=== PATIENT | female | born 1930 | race African-American/Black ===

== ENCOUNTER 2020-08-25 15:16 | Observation (INO) ==
--- NOTE | 2020-08-25 16:18 | DR.DIZZY ---
HPI Time seen Time Seen by Provider: 08/25/20 15:44 PCP Primary Care Physician: OUMOU GALVAN HPI Comment HPI Comment: An 89 y/o female presenting via EMS stating she passed out. She states that she was on her way into her kitchen. "I couldn't see there for a minute. She denies associated palpitations, c/p SOB or tinnitus. This happens to her intermittently and she states that she has some medications at home given to her to use. Complaint Chief Complaint:: EMS OUT TO PT WITH C/O SYNCOPE EPISODE, PT C/O PAIN TO HER BACK , PT IS ALERT AND ORIENTED TIMES FOUR PT IS ABLE TO GIVE HX , PT HAD NO LOC , ,BR COVID-19 Coronavirus risk:travel/contact w/high risk person: No Has patient experienced Coronavirus symptoms: No Nurses Notes Reviewed Nurses Notes Review: Yes Source History Provided: Patient Mode of Arrival Mode of Arrival: Stretcher Timing Onset of Chief Complaint: 08/25/20 Symptom Onset: Known Onset of Symptoms Start Date: 08/25/20 Location of Weakness Weakness Location: None Context History of: None Stroke Symptoms: None Associated signs and symptoms Associated Signs and Symptoms: Syncope and Headache (frontal); denies Faintness, Near Syncope, Vertigo, Tinnitus, Imbalance, Weak, Numb, Difficult Speech, Change of Vision, Fever, Chest Pain, Palpitations, Nausea, Vomiting and GI Bleed PMH PMH Past Medical History: Yes Past Medical History: Hypertension Past Surgical History: Yes Surgical History: Hysterectomy Family History History of Family Medical Conditions: No Social History Does patient currently use any type of tobacco product: No Have you used tobacco products in the last 12 months: No Type of Tobacco Use: None Does any household member use tobacco: No Alcohol Use: None Do you use any recreational Drugs:: No Lives Where: Home Travel Risk Coronavirus risk:travel/contact w/high risk person: No Has patient experienced Coronavirus symptoms: No Infectious screening In the last 2 months have you had wt loss of >10#?: NO Have you had fever, night sweats or hemotysis?: No Have you traveled outside the country in the last 6 months?: No Isolation: Standard ROS Review of Systems Constitutional: No Symptoms Reported Eyes: No Symptoms Reported ENTM: No Symptoms Reported Respiratoy: No Symptoms Reported Cardiovascular: No Symptoms Reported Gastrointestinal/Abdominal: No Symptoms Reported Genitourinary: No Symptoms Reported Neurological: Dizziness Musculoskeletal: No Symptoms Reported Integumentary: No Symptoms Reported Hematologic/Lymphatic: No Symptoms Reported Endocrine: No Symptoms Reported Psychiatric: No Symptoms Reported PE Vital Signs Vitals: Temperature 97.5 F Pulse Rate 77 Respiratory Rate 21 Blood Pressure 135/74 O2 Sat by Pulse Oximetry 98 General Limitations: No Limitations General Appearance: Alert and In No Apparent Distress Head Head Exam: Normal Inspection, Atraumatic and Normocephalic Eyes Eye exam: Normal Appearance, PERRL and EOMI ENT ENT Exam: Normal Exam, Normal Oropharynx, Normal External Ear Exam and Mucous Membranes Moist Neck Neck Exam: Normal Inspection, Full ROM and Trachea Midline Chest Chest Inspection: Normal Inspection and Symmetric Chest Wall Rise Respiratory Respiratory Exam: Normal Lung Sounds Bilat Cardiovascular Cardiovascular Exam: Regular Rate, Normal Rhythm, Normal Heart Sounds, +S1 and +S2 Abdominal Exam Abdominal Exam: Normal Inspection, Normal Bowel Sounds and Soft Rectal Rectal Exam: Deferred Extremeties Extremities Exam: Normal Inspection and Full ROM Back Back Exam: Normal Inspection and Full ROM Neurologic Neurological Exam: Alert and Oriented X3 Psychiatric Psychiatric Exam: Normal Affect and Normal Mood Skin Skin Exam: Dry and Normal Color MDM Differential Diagnosis Differential Diagnosis: CVA, Electrolyte disorder, Hypoglycemia, Myocardial infarction and Peripheral Vertigo COURSE Treatment Treatment: HISTORY EMS OUT TO PT WITH C/O SYNCOPE EPISODE, PT C/O PAIN TO HER BACK, PT IS ALERT AND ORIENTED TIMES FOUR PT IS ABLE TO GIVE HX, PT HAD NO LOC, EMS STATES PT WAS SEEN AT [facility] ON 08/24/2020 FOR LABS STUDY CHEST, 1 VIEW COMPARISON None FINDINGS The trachea is midline. The cardiac silhouette is borderline enlarged.. The lungs are clear without focal infiltrate or effusion. The bony thorax is unremarkable. IMPRESSION No acute cardiopulmonary disease. Electronically signed by: CHAPIN CATALAN (Aug 25, 2020 16:50:16) Reevaluation 1st: Improved Education/Counseling Education/Counseling: Patient, Education and Counseling Educated On: Treatment, Diagnosis, Prognosis and Needs for Follow Up ROR Labs Reviewed Laboratory Results Reviewed?: Yes Result Diagrams: 08/25/20 16:24 08/25/20 16:24 Laboratory: WBC 5.3 X10^3/uL (3.6-10.0) 08/25/20 16:24 RBC 4.37 X10^6/uL (3.5-5.4) 08/25/20 16:24 Hgb 12.7 g/dL (12.0-16.0) 08/25/20 16:24 Hct 38.9 % (36.0-47.0) 08/25/20 16:24 MCV 89.1 fL (80.0-100.0) 08/25/20 16:24 MCH 29.0 pg (27.0-34.0) 08/25/20 16:24 MCHC 32.5 g/dL (33.0-35.0) L 08/25/20 16:24 RDW 17.5 % (11.6-16.5) H 08/25/20 16:24 Plt Count 178 X10^3/uL (150.0-450.0) 08/25/20 16:24 MPV 8.8 fL (7.4-11.0) 08/25/20 16:24 Neut % (Auto) 57.9 % (42.0-75.0) 08/25/20 16:24 Lymph % (Auto) 30.3 % (21.0-51.0) 08/25/20 16:24 [place] % (Auto) 8.5 % (0.0-13.0) 08/25/20 16:24 Eos % (Auto) 2.4 % (0.9-2.9) 08/25/20 16:24 Baso % (Auto) 0.9 % (0.2-1.0) 08/25/20 16:24 Neut # (Auto) 3.0 x10^3/uL (2.2-4.8) 08/25/20 16:24 Lymph # (Auto) 1.6 X10^3/uL (1.3-2.9) 08/25/20 16:24 [place] # (Auto) 0.4 x10^3/uL (0.3-0.8) 08/25/20 16:24 Eos # (Auto) 0.1 x10^3/uL (0.0-0.2) 08/25/20 16:24 Baso # (Auto) 0.0 X10^3/uL (0.0-0.1) 08/25/20 16:24 Absolute Nucleated RBC 0.1 /100WBC 08/25/20 16:24 Sodium 139 mmol/L (136-145) 08/25/20 16:24 Corrected Sodium TNP 08/25/20 16:24 Potassium 3.6 mmol/L (3.5-5.1) 08/25/20 16:24 Chloride 103 mmol/L (98-107) 08/25/20 16:24 Carbon Dioxide 26.3 mmol/L (21-32) 08/25/20 16:24 BUN 31 mg/dL (7-18) H 08/25/20 16:24 Creatinine 3.07 mg/dL (0.55-1.02) H 08/25/20 16:24 Est GFR (MDRD) Af Amer 18 (>60) L 08/25/20 16:24 Est GFR (MDRD) Non-Af 15 (>60) L 08/25/20 16:24 Glucose 102 mg/dL (65-99) H 08/25/20 16:24 Calcium 9.7 mg/dL (8.5-10.1) 08/25/20 16:24 Corrected Calcium TNP 08/25/20 16:24 Total Bilirubin 0.30 mg/dL (0.2-1.0) 08/25/20 16:24 AST 17 Units/L (15-37) 08/25/20 16:24 ALT 12 Units/L (12-78) 08/25/20 16:24 Alkaline Phosphatase 91 Units/L (46-116) 08/25/20 16:24 Total Protein 8.0 g/dL (6.4-8.2) 08/25/20 16:24 Albumin 3.5 g/dL (3.4-5.0) 08/25/20 16:24 Globulin 4.5 g/dL (2.5-4.5) 08/25/20 16:24 Albumin/Globulin Ratio 0.8 Ratio (1.1-2.1) L 08/25/20 16:24 XRAY XRAY Interpreted by: Self X-ray Results: CXR: No cardiomegaly, no infiltrates noted. Radiologist report is pending. EKG Rate: 75 [place]: Normal Rhythm: NSR Block: None Hypertrophy: None ST: Old, Inf and Infarct Opioid Opioid Risk Tool Age (Jeevan box if 16-45): No History of Preadolescent Sexual Abuse: No Total: 0 Total Score Risk Category: Low Risk Copyright: Benito GERONIMO predicting aberrant behaviors Diagnosis Discharge Problem: Near syncope, CKD (chronic kidney disease) stage 4, GFR 15-29 ml/min Instructions Instructions: Near-Syncope, [id number] Chronic Kidney Disease, Adult, [id number] Forms: Precautions for COVID19 Patient Portal Social Distancing ADDITIONAL NOTES Additional Notes Additional Notes: HISTORY EMS OUT TO PT WITH C/O SYNCOPE EPISODE, PT C/O PAIN TO HER BACK, PT IS ALERT AND ORIENTED TIMES FOUR PT IS ABLE TO GIVE HX, PT HAD NO LOC, EMS STATES PT WAS SEEN AT [facility] ON 08/24/2020 FOR LABS STUDY CHEST, 1 VIEW COMPARISON None FINDINGS The trachea is midline. The cardiac silhouette is borderline enlarged.. The lungs are clear without focal infiltrate or effusion. The bony thorax is unremarkable. IMPRESSION No acute cardiopulmonary disease. Electronically signed by: CHAPIN CATALAN (Aug 25, 2020 16:50:16)
[2020-08-25 16:42] LABS: ALANINE AMINOTRANSFERASE 12 Units/L (12-78); ALBUMIN 3.5 g/dL (3.4-5.0); ALKALINE PHOSPHATASE 91 Units/L (46-116); ASPARTATE AMINO TRANSFERASE 17 Units/L (15-37); BLOOD UREA NITROGEN 31 mg/dL (7-18); CALCIUM 9.7 mg/dL (8.5-10.1); CARBON DIOXIDE 26.3 mmol/L (21-32); CHLORIDE 103 mmol/L (98-107); CREATININE 3.07 mg/dL (0.55-1.02); SODIUM 139 mmol/L (136-145); eGFR NON BLACK RACES 15 (>60)
[2020-08-25 16:43] LABS: BASOPHILS % (AUTO) 0.9 % (0.2-1.0); EOSINOPHILS # (AUTO) 0.1 x10^3/uL (0.0-0.2); EOSINOPHILS % (AUTO) 2.4 % (0.9-2.9); HEMATOCRIT 38.9 % (36.0-47.0); HEMOGLOBIN 12.7 g/dL (12.0-16.0); LYMPHOCYTES # (AUTO) 1.6 X10^3/uL (1.3-2.9); LYMPHOCYTES % (AUTO) 30.3 % (21.0-51.0); MEAN CORPUSCULAR HGB CONC 32.5 g/dL (33.0-35.0); MEAN CORPUSCULAR VOLUME 89.1 fL (80.0-100.0); MEAN PLATELET VOLUME 8.8 fL (7.4-11.0); MONOCYTES # (AUTO) 0.4 x10^3/uL (0.3-0.8); MONOCYTES % (AUTO) 8.5 % (0.0-13.0); NEUTROPHILS % (AUTO) 57.9 % (42.0-75.0); PLATELET COUNT 178 X10^3/uL (150.0-450.0); RED BLOOD COUNT 4.37 X10^6/uL (3.5-5.4); RED CELL DISTRIBUTION WIDTH 17.5 % (11.6-16.5); WHITE BLOOD COUNT 5.3 X10^3/uL (3.6-10.0)
--- NOTE | 2020-08-25 16:50 | CT ---
HISTORYEMS OUT TO PT WITH C/O SYNCOPE EPISODE, PT C/O PAIN TO HER BACK, PT IS ALERT AND ORIENTED TIMES FOUR PT IS ABLE TO GIVE HX, PT HAD NO LOC, EMS STATES PT WAS SEEN AT [facility] ON 08/24/2020 FOR LABSSTUDYBRAIN W/O CONCOMPARISONHead CT 08/24/2020TECHNIQUEMultiple CT axial images of the head were obtained without IV contrast. Coronal and sagittal images were reconstructed. Dose reduction techniques included Automated Exposure Control (AEC) and adjustment of mA and kV.FINDINGSAge-related findings include central and cortical atrophy with areas of low density in the periventricular white matter compatible with micro-ischemic changes. There is no mass, shift, or hemorrhage. Cerebellar tonsils are at an appropriate level. No fluid in the sinuses or mucosal thickening to suggest sinusitis. There is no mastoid effusion. Tiny amount of fluid in the right maxillary sinus may be incidental.IMPRESSION1. No acute findingElectronically signed by: Bay Hutson (Aug 25, 2020 16:46:49)
--- NOTE | 2020-08-25 16:52 | RAD ---
HISTORYEMS OUT TO PT WITH C/O SYNCOPE EPISODE, PT C/O PAIN TO HER BACK, PT IS ALERT AND ORIENTED TIMES FOUR PT IS ABLE TO GIVE HX, PT HAD NO LOC, EMS STATES PT WAS SEEN AT [facility] ON 08/24/2020 FOR LABSSTUDYCHEST, 1 VIEWCOMPARISONNoneFINDINGSThe trachea is midline. The cardiac silhouette is borderline enlarged.. The lungs are clear without focal infiltrate or effusion. The bony thorax is unremarkable.IMPRESSIONNo acute cardiopulmonary disease.Electronically signed by: CHAPIN CATALAN (Aug 25, 2020 16:50:16)
[2020-08-25 18:32] LABS: BILIRUBIN,URINE NEGATIVE (NEGATIVE); BLOOD/HEMOGLOBIN,URINE 1+ (NEGATIVE); GLUCOSE, URINE NEGATIVE (NEGATIVE); KETONES,URINE NEGATIVE (NEGATIVE); LEUKOCYTE ESTERASE ,URINE 2+ (NEGATIVE); NITRITES,URINE NEGATIVE (NEGATIVE); PROTEIN,URINE NEGATIVE (NEGATIVE); UROBILINOGEN,URINE NORMAL (NORMAL)
[2020-08-25 18:40] LABS: APPEARANCE,URINE CLEAR (CLEAR); COLOR,URINE YELLOW (YELLOW)
[2020-08-25 18:41] LABS: BACTERIA,URINE TRACE /HPF (NEGATIVE); RBC,URINE 0-2 /HPF (0-3); SQUAMOUS EPITHELIAL CELL,UR RARE /HPF (NEGATIVE)
[2020-08-25] MEDS ORDERED: CATAPRES TAB 0.1 MG PO ONE (20:25)
[2020-08-25] MEDS ORDERED: CATAPRES TAB 0.1 MG ONE (20:27)
[2020-08-25 22:39] VITALS: BMI 29.5
[2020-08-25 23:07] LABS: BASOPHILS # (AUTO) 0.1 X10^3/uL (0.0-0.1); BASOPHILS % (AUTO) 1.1 % (0.2-1.0); EOSINOPHILS # (AUTO) 0.2 x10^3/uL (0.0-0.2); EOSINOPHILS % (AUTO) 2.5 % (0.9-2.9); HEMATOCRIT 39.3 % (36.0-47.0); HEMOGLOBIN 12.8 g/dL (12.0-16.0); LYMPHOCYTES # (AUTO) 2.3 X10^3/uL (1.3-2.9); LYMPHOCYTES % (AUTO) 34.3 % (21.0-51.0); MEAN CORPUSCULAR HEMOGLOBIN 29.1 pg (27.0-34.0); MEAN CORPUSCULAR HGB CONC 32.6 g/dL (33.0-35.0); MEAN CORPUSCULAR VOLUME 89.3 fL (80.0-100.0); MEAN PLATELET VOLUME 8.6 fL (7.4-11.0); MONOCYTES # (AUTO) 0.6 x10^3/uL (0.3-0.8); MONOCYTES % (AUTO) 9.2 % (0.0-13.0); NEUTROPHILS # (AUTO) 3.6 x10^3/uL (2.2-4.8); NEUTROPHILS % (AUTO) 52.9 % (42.0-75.0); PLATELET COUNT 167 X10^3/uL (150.0-450.0); RED BLOOD COUNT 4.41 X10^6/uL (3.5-5.4); WHITE BLOOD COUNT 6.7 X10^3/uL (3.6-10.0)
[2020-08-25] MEDS: NS 1000 ML 1,000 ML IV SCH (23:15)
[2020-08-25 23:18] LABS: ALANINE AMINOTRANSFERASE 15 Units/L (12-78); ALBUMIN 3.5 g/dL (3.4-5.0); ALKALINE PHOSPHATASE 100 Units/L (46-116); ASPARTATE AMINO TRANSFERASE 16 Units/L (15-37); BLOOD UREA NITROGEN 31 mg/dL (7-18); CALCIUM 9.5 mg/dL (8.5-10.1); CARBON DIOXIDE 27.4 mmol/L (21-32); CHLORIDE 103 mmol/L (98-107); COR NA(FOR HYPERGLY) 140 mmol/L (136-145); CREATININE 2.86 mg/dL (0.55-1.02); SODIUM 140 mmol/L (136-145); eGFR NON BLACK RACES 17 (>60)
[2020-08-26 06:18] LABS: BASOPHILS % (AUTO) 0.6 % (0.2-1.0); EOSINOPHILS # (AUTO) 0.2 x10^3/uL (0.0-0.2); EOSINOPHILS % (AUTO) 2.9 % (0.9-2.9); HEMATOCRIT 35.9 % (36.0-47.0); HEMOGLOBIN 11.7 g/dL (12.0-16.0); LYMPHOCYTES # (AUTO) 2.7 X10^3/uL (1.3-2.9); LYMPHOCYTES % (AUTO) 46.5 % (21.0-51.0); MEAN CORPUSCULAR HEMOGLOBIN 29.2 pg (27.0-34.0); MEAN CORPUSCULAR HGB CONC 32.7 g/dL (33.0-35.0); MEAN CORPUSCULAR VOLUME 89.4 fL (80.0-100.0); MEAN PLATELET VOLUME 8.5 fL (7.4-11.0); MONOCYTES # (AUTO) 0.6 x10^3/uL (0.3-0.8); MONOCYTES % (AUTO) 9.8 % (0.0-13.0); NEUTROPHILS # (AUTO) 2.3 x10^3/uL (2.2-4.8); NEUTROPHILS % (AUTO) 40.2 % (42.0-75.0); PLATELET COUNT 161 X10^3/uL (150.0-450.0); RED BLOOD COUNT 4.02 X10^6/uL (3.5-5.4); RED CELL DISTRIBUTION WIDTH 17.3 % (11.6-16.5); WHITE BLOOD COUNT 5.8 X10^3/uL (3.6-10.0)
[2020-08-26 06:40] LABS: ALANINE AMINOTRANSFERASE 16 Units/L (12-78); ALBUMIN 3.1 g/dL (3.4-5.0); ALKALINE PHOSPHATASE 91 Units/L (46-116); ASPARTATE AMINO TRANSFERASE 14 Units/L (15-37); BLOOD UREA NITROGEN 29 mg/dL (7-18); CALCIUM 9.1 mg/dL (8.5-10.1); CARBON DIOXIDE 26.3 mmol/L (21-32); CHLORIDE 106 mmol/L (98-107); COR CA(FOR HYPOALB) 9.8 mg/dL (8.5-10.1); CREATININE 2.52 mg/dL (0.55-1.02); SODIUM 142 mmol/L (136-145); TOTAL PROTEIN 7.1 g/dL (6.4-8.2); eGFR NON BLACK RACES 19 (>60)
[2020-08-26 09:19] LABS: CKMB % 0.9 % (<4); CREATINE KINASE 108 Units/L (26-192); CREATINE KINASE MB < 1.0 ng/mL (0-4.0); TROPONIN I < 0.02 ng/mL (0-1.5)
[2020-08-26] MEDS: ASPIRIN EC 81 MG PO SCH (09:59)
[2020-08-26] MEDS: PROCARDIA XL 24-hr PO SCH (10:00)
[2020-08-26] MEDS: ZYLOPRIM PO SCH (10:00)
[2020-08-26] MEDS: ROCALTROL PO SCH (10:00)
[2020-08-26] MEDS: NEURONTIN CAP 100 MG PO SCH ×2 (10:01→20:46)
[2020-08-26] MEDS: NAMENDA TAB 10 MG PO SCH ×2 (10:01→20:46)
[2020-08-26] MEDS: NORMODYNE TAB 100 MG PO SCH ×2 (10:01→20:47)
[2020-08-26] MEDS: LINZESS PO SCH (10:01)
[2020-08-26] MEDS: MILK OF MAGNESIA PO SCH (10:02)
[2020-08-26] MEDS: COLACE SYRUP 100 MG UDC PO SCH (10:03)
[2020-08-26] MEDS: NS 1000 ML 1,000 ML IV SCH (10:04)
[2020-08-26] MEDS: ATIVAN TAB 1 MG PO PRN (10:08)
[2020-08-26] MEDS: DEMADEX PO SCH (10:08)
[2020-08-26 14:05] LABS: CKMB % 0.8 % (<4); CREATINE KINASE 122 Units/L (26-192); CREATINE KINASE MB < 1.0 ng/mL (0-4.0); TROPONIN I < 0.02 ng/mL (0-1.5)
[2020-08-26] MEDS: LOVENOX INJ 30 MG SYR SC SCH (16:15)
--- NOTE | 2020-08-26 16:25 | VAS ---
HISTORYSyncopeSTUDYCAROTID USCOMPARISONAugust 2019TECHNIQUEDuplex ultrasound scan of the bilateral carotid and vertebral arteries combining grayscale, color Doppler and spectral waveform analysis.FINDINGSRight common carotid artery: Intimal thickening along the margins of the CCA. No occlusion or stenosis. Waveforms are normal.Peak systolic velocity in the mid CCA is 120.06 cm/sec.Right internal carotid artery: Unremarkable. No occlusion or stenosis. Waveforms are normal. Peak systolic velocity in the proximal ICA is 87.93 cm/sec.Right ICA/CCA ratio: Within normal limits; 0.73.Right external carotid artery: No significant stenosis in the origin.Right vertebral artery: Unremarkable. Antegrade flow.Left common carotid artery: Interval thickening along the margins of the CCA. No occlusion or stenosis. Waveforms are normal. Peak systolic velocity in the distal CCA is 101.92 cm/sec.Left internal carotid artery: Unremarkable. No occlusion or stenosis. Waveforms are normal. Peak systolic velocity in the distal ICA is 114.36 cm/sec.Left ICA/CCA ratio: Within normal limits; 1.12.Left external carotid artery: No stenosis in the origin.Left vertebral artery: Unremarkable. Antegrade flow.IMPRESSIONNo clinically significant diameter stenosis in the internal carotid arteries based on flow velocity criteria.REFERENCES:SRU CRITERIA. The degree of internal carotid artery stenosis is based on criteria defined by the Society of Radiologists in Ultrasound (SRU).--Normal is no stenosis (ICA PSV is <125 cm/sec, ICA/CCA PSV ratio <2.0).--Mild is less than 50% stenosis (ICA PSV is <125 cm/sec, plaque/intimal thickening visible, ICA/CCA PSV ratio <2.0 and ICA EDV <40 cm/sec).--Moderate is 50-69% stenosis (ICA PSV is 125-230 cm/sec and plaque is visible. ICA/CCA PSV ratio of 2.0-4.0. ICA EDV is 40-100 cm/sec).--Severe is greater than 69% stenosis to near occlusion (ICA PSV is >230 cm/sec, visible plaque/luminal narrowing, ICA/CCA >4.0, ICA EDV >100 cm/sec).--Near occlusion is a markedly narrowed lumen.--Total occlusion is no detectable patent lumen.Electronically signed by: Farhat Simpson (Aug 26, 2020 16:23:52)
[2020-08-26] MEDS: SYNTHROID 112 mcg TAB PO SCH (17:00)
[2020-08-26] MEDS ORDERED: APRESOLINE INJ 20 MG VIAL IVP PRN (17:40)
--- NOTE | 2020-08-26 17:57 | DR.H&P ---
H&P - History & Physical for Day of: H&P Date: 08/25/20 - Chief Complaint Chief Complaint: syncope - History of Present Illness History of Present Illness: PT IS 89F ER ADMISSION AFTER PRESENTING PER EMS, "stating she passed out." She states that she was on her way into her kitchen. "I couldn't see there for a minute. She denies associated palpitations, c/p SOB or tinnitus. This happens to her intermittently and she states that she has some medications at home given to her to use. PT DENIES ANY FEVER, CCC. PT WAS COVID - ON ADMISSION. PT REPORTS SHE HAS HX OF KIDNEY DISEASE AND HYPERTENSION. PT ADMITTED FOR TREATMENT AND EVALUATION OF ACUTE ILLNESS, RO CVA - Past Medical History Past Medical History: Hypertension, Renal Disease - Past Surgical History Surgical History: HARDWARE DESIGNER Surgery, Hysterectomy, Joint Replacement - Family History Family Medical History: Diabetes Mellitus, Hypertension - Social History Does patient currently use any type of tobacco product: No Have you used tobacco products in the last 12 months: No Type of Tobacco Use: None Does any household member use tobacco: No Alcohol Use: None Drug Use: None - Medications Home Medications: No Known Drug Allergies Allergy (Verified 08/25/20 15:26) CONTINUE taking the following medications allopurinol 100 mg PO DAILY 08/25/20 [History] aspirin [Ecotrin Low Strength] 81 mg PO DAILY 08/25/20 [History] atorvastatin 20 mg PO DAILY 08/25/20 [History] calcitriol 0.25 mcg PO DAILY 08/25/20 [History] carbidopa-levodopa 1 tab PO BID 08/25/20 [History] docusate sodium 100 mg PO DAILY 08/25/20 [History] donepezil 10 mg PO DAILY 08/25/20 [History] ezetimibe 10 mg PO DAILY 08/25/20 [History] gabapentin 200 mg PO BID 08/25/20 [History] labetalol 100 mg PO BID 08/25/20 [History] levothyroxine 112 mcg PO QAM 08/25/20 [History] linaclotide [Linzess] 145 mcg PO DAILY PRN 08/25/20 [History] lorazepam 1 mg PO DAILY PRN 08/25/20 [History] memantine 10 mg PO BID 08/25/20 [History] mirtazapine 30 mg PO QHS 08/25/20 [History] nifedipine 60 mg PO DAILY 08/25/20 [History] pramipexole 0.25 mg PO QHS 08/25/20 [History] propylene glycol-glycerin [Advanced Eye Relief] 2 drp OPHTHALMIC (EYE) QID PRN 08/25/20 [History] torsemide 10 mg PO QAM 08/25/20 [History] tramadol See Rx Instructions .ROUTE .COMPLEX PRN 08/25/20 [History] - Review of Systems Constitutional: Weakness Eyes: No Symptoms Reported ENT: No Symptoms Reported Respiratory: No Symptoms Reported Cardiovascular: Chest Pain Gastrointestinal: No Symptoms Reported Genitourinary: No Symptoms Reported, Dysuria Skin: No Symptoms Reported Neurological: No Symptoms Reported - Physical Exam Vital Signs: Temperature 97.4 F Pulse Rate [Left Brachial] 66 Pulse Rate [Right] 68 Pulse Rate 72 Respiratory Rate 20 Blood Pressure [Right Arm] 175/72 Blood Pressure [Left Arm] 192/89 Blood Pressure 172/96 O2 Sat by Pulse Oximetry 98 Oriented: Normal Eyes: Normal Ear: Normal Nose: Normal Throat: Normal Respiratory: RLL Diminished, LLL Diminished Cardiovascular: Normal : Normal Auscultation: Bowel Sounds: Normal Palpation: Normal Tenderness: Normal Skin: Decreased [place]urg[place] Musculoskeletal: Normal Psychiatric: Normal Mood Description: Calm Speech Pattern: Clear, Appropriate - Assessment/Plan (1) Near syncope Status: Acute Plan: ADMIT, CT HEAD ON ADMISSION. BP CONTROL, GENTLE IV HYDRATION, STRICT I& OS. CAROTID ARTERY US, ECHO. TELEMETRY, BP CONTROL. SERIAL CE AND EKG. (2) Hypertension Status: Acute (3) Acute kidney injury Status: Acute - Allergies Allergies/Adverse Reactions: Allergies Allergy/AdvReac Type Severity Reaction Status Date / Time No Known Drug Allergies Allergy Verified 08/25/20 15:26
--- NOTE | 2020-08-26 18:19 | PCM.PROG ---
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 PT REPORTS THIS MORNING SHE HAS HAD SOME CHEST PAIN. PT HAS PMH OF RENAL DISEASE AND HTN. PT HAD STABLE CE ON AM COLLECTION, WILL REPEAT Q 6 HRS X3. PTS HOME MEDICATION RESUMED FOR BP CONTROL. WILL OBTAIN ECHO AND CAROTID ARTERY US THIS AM. PT HAD SLIGHT IMPROVING RENAL FUNCTION. KEEP STRICT I&OS. PT DENIES ANY FEVER, CCC. - Past Medical Family Social History Past Med/Fam/Surg Hx: No changes since H&P Allergies: Allergies No Known Drug Allergies Allergy (Verified 08/25/20 15:26) - Review of Systems ROS: No change since H&P - Vital Signs and I&O's Vital Signs: Temperature 97.4 F Pulse Rate [Left Brachial] 66 Pulse Rate [Right] 68 Pulse Rate 72 Respiratory Rate 20 Blood Pressure [Right Arm] 175/72 Blood Pressure [Left Arm] 192/89 Blood Pressure 172/96 O2 Sat by Pulse Oximetry 98 Intake and Output: Intake & Output 08/24/20 08/25/20 08/26/20 08/27/20 11:59 11:59 11:59 11:59 Intake Total 538 / 538 480 / 480 Balance 538 / 538 480 / 480 - Physical Exam Oriented: Normal Eyes: Normal Ear: Normal Nose: Normal Throat: Normal Respiratory: Diminished Cardiovascular: Normal : Normal Auscultation: Bowel Sounds: Normal Tenderness: Normal Skin: Decreased Turgur Musculoskeletal: Normal Psychiatric: Normal Mood Description: Calm Speech Pattern: Clear, Appropriate - Laboratory and Diagnostics Result Diagrams: 08/26/20 05:24 08/26/20 05:24 Labs: Laboratory WBC 5.8 X10^3/uL (3.6-10.0) 08/26/20 05:24 RBC 4.02 X10^6/uL (3.5-5.4) 08/26/20 05:24 Hgb 11.7 g/dL (12.0-16.0) L 08/26/20 05:24 Hct 35.9 % (36.0-47.0) L 08/26/20 05:24 MCV 89.4 fL (80.0-100.0) 08/26/20 05:24 MCH 29.2 pg (27.0-34.0) 08/26/20 05:24 MCHC 32.7 g/dL (33.0-35.0) L 08/26/20 05:24 RDW 17.3 % (11.6-16.5) H 08/26/20 05:24 Plt Count 161 X10^3/uL (150.0-450.0) 08/26/20 05:24 MPV 8.5 fL (7.4-11.0) 08/26/20 05:24 Neut % (Auto) 40.2 % (42.0-75.0) L 08/26/20 05:24 Lymph % (Auto) 46.5 % (21.0-51.0) 08/26/20 05:24 [place] % (Auto) 9.8 % (0.0-13.0) 08/26/20 05:24 Eos % (Auto) 2.9 % (0.9-2.9) 08/26/20 05:24 Baso % (Auto) 0.6 % (0.2-1.0) 08/26/20 05:24 Neut # (Auto) 2.3 x10^3/uL (2.2-4.8) 08/26/20 05:24 Lymph # (Auto) 2.7 X10^3/uL (1.3-2.9) 08/26/20 05:24 [place] # (Auto) 0.6 x10^3/uL (0.3-0.8) 08/26/20 05:24 Eos # (Auto) 0.2 x10^3/uL (0.0-0.2) 08/26/20 05:24 Baso # (Auto) 0.0 X10^3/uL (0.0-0.1) 08/26/20 05:24 Absolute Nucleated RBC 0.2 /100WBC 08/26/20 05:24 Sodium 142 mmol/L (136-145) 08/26/20 05:24 Corrected Sodium TNP 08/26/20 05:24 Potassium 3.5 mmol/L (3.5-5.1) 08/26/20 05:24 Chloride 106 mmol/L (98-107) 08/26/20 05:24 Carbon Dioxide 26.3 mmol/L (21-32) 08/26/20 05:24 BUN 29 mg/dL (7-18) H 08/26/20 05:24 Creatinine 2.52 mg/dL (0.55-1.02) H 08/26/20 05:24 Est GFR (MDRD) Af Amer 23 (>60) L 08/26/20 05:24 Est GFR (MDRD) Non-Af 19 (>60) L 08/26/20 05:24 Glucose 103 mg/dL (65-99) H 08/26/20 05:24 Calcium 9.1 mg/dL (8.5-10.1) 08/26/20 05:24 Corrected Calcium 9.8 mg/dL (8.5-10.1) 08/26/20 05:24 Total Bilirubin 0.20 mg/dL (0.2-1.0) 08/26/20 05:24 AST 14 Units/L (15-37) L 08/26/20 05:24 ALT 16 Units/L (12-78) 08/26/20 05:24 Alkaline Phosphatase 91 Units/L (46-116) 08/26/20 05:24 Creatine Kinase 122 Units/L (26-192) 08/26/20 13:27 CK-MB (CK-2) < 1.0 ng/mL (0-4.0) 08/26/20 13:27 CK/CKMB % Calc 0.8 % (<4) 08/26/20 13:27 Troponin I < 0.02 ng/mL (0-1.5) 08/26/20 13:27 C-Reactive Protein 13.80 mg/L (0-3.0) H 08/26/20 13:27 Total Protein 7.1 g/dL (6.4-8.2) 08/26/20 05:24 Albumin 3.1 g/dL (3.4-5.0) L 08/26/20 05:24 Globulin 4.0 g/dL (2.5-4.5) 08/26/20 05:24 Albumin/Globulin Ratio 0.8 Ratio (1.1-2.1) L 08/26/20 05:24 Specimen Type Clean catch urine 08/25/20 18:15 Urine Color Yellow (YELLOW) 08/25/20 18:15 Urine Appearance Clear (CLEAR) 08/25/20 18:15 Urine pH 5.0 (5.0 - 8.0) 08/25/20 18:15 Ur Specific [place] 1.015 (1.000-1.030) 08/25/20 18:15 Urine Protein Negative (NEGATIVE) 08/25/20 18:15 Urine Glucose (UA) Negative (NEGATIVE) 08/25/20 18:15 Urine Ketones Negative (NEGATIVE) 08/25/20 18:15 Urine Occult Blood 1+ (NEGATIVE) 08/25/20 18:15 Urine Nitrite Negative (NEGATIVE) 08/25/20 18:15 Urine Bilirubin Negative (NEGATIVE) 08/25/20 18:15 Urine Urobilinogen Normal (NORMAL) 08/25/20 18:15 Ur Leukocyte Esterase 2+ (NEGATIVE) 08/25/20 18:15 Urine RBC 0-2 /HPF (0-3) 08/25/20 18:15 Urine WBC 3-5 /HPF (0-5) 08/25/20 18:15 Ur Squamous Epith Cells Rare /HPF (NEGATIVE) 08/25/20 18:15 Urine Bacteria Trace /HPF (NEGATIVE) 08/25/20 18:15 Ur Culture Indicated? No/not indicated 08/25/20 18:15 SARS CoV-2 RNA Rapid MICKEY Negative (NEGATIVE) 08/25/20 19:32 - Plan (1) Near syncope Status: Acute Plan: CT HEAD ON ADMISSION. BP CONTROL, GENTLE IV HYDRATION, STRICT I& OS. CAROTID ARTERY US, ECHO. TELEMETRY, BP CONTROL, CONTINUE HOME ANTIHYPERTENSIVE MEDICATION. PRN HYDRALAZINE. SERIAL CE AND EKG. (2) Hypertension Status: Acute (3) Acute kidney injury Status: Acute
[2020-08-26] MEDS: ARICEPT TAB 10 MG PO SCH (20:45)
[2020-08-26] MEDS: LIPITOR TAB 20 MG PO SCH (20:45)
[2020-08-26] MEDS: COLACE CAP 100 MG PO SCH (20:45)
[2020-08-26] MEDS: MIRAPEX TAB 0.25 MG PO SCH (20:46)
[2020-08-26] MEDS: ZETIA TAB 10 MG PO SCH (20:47)
[2020-08-26] MEDS: REMERON PO SCH (20:47)
[2020-08-27 05:14] LABS: BASOPHILS # (AUTO) 0.1 X10^3/uL (0.0-0.1); BASOPHILS % (AUTO) 1.4 % (0.2-1.0); EOSINOPHILS # (AUTO) 0.2 x10^3/uL (0.0-0.2); EOSINOPHILS % (AUTO) 2.5 % (0.9-2.9); HEMATOCRIT 37.4 % (36.0-47.0); HEMOGLOBIN 12.2 g/dL (12.0-16.0); LYMPHOCYTES # (AUTO) 2.9 X10^3/uL (1.3-2.9); LYMPHOCYTES % (AUTO) 45.6 % (21.0-51.0); MEAN CORPUSCULAR HEMOGLOBIN 29.4 pg (27.0-34.0); MEAN CORPUSCULAR HGB CONC 32.6 g/dL (33.0-35.0); MEAN CORPUSCULAR VOLUME 90.1 fL (80.0-100.0); MEAN PLATELET VOLUME 9.2 fL (7.4-11.0); MONOCYTES # (AUTO) 0.5 x10^3/uL (0.3-0.8); MONOCYTES % (AUTO) 8.5 % (0.0-13.0); NEUTROPHILS # (AUTO) 2.7 x10^3/uL (2.2-4.8); PLATELET COUNT 166 X10^3/uL (150.0-450.0); RED BLOOD COUNT 4.15 X10^6/uL (3.5-5.4); RED CELL DISTRIBUTION WIDTH 17.1 % (11.6-16.5); WHITE BLOOD COUNT 6.4 X10^3/uL (3.6-10.0)
[2020-08-27 05:30] LABS: ALANINE AMINOTRANSFERASE 15 Units/L (12-78); ALBUMIN 3.1 g/dL (3.4-5.0); ALKALINE PHOSPHATASE 88 Units/L (46-116); ASPARTATE AMINO TRANSFERASE 19 Units/L (15-37); BLOOD UREA NITROGEN 23 mg/dL (7-18); CALCIUM 9.1 mg/dL (8.5-10.1); CHLORIDE 104 mmol/L (98-107); COR CA(FOR HYPOALB) 9.8 mg/dL (8.5-10.1); CREATININE 1.94 mg/dL (0.55-1.02); SODIUM 141 mmol/L (136-145); TOTAL PROTEIN 7.1 g/dL (6.4-8.2); eGFR NON BLACK RACES 26 (>60)
[2020-08-27] MEDS: NS 1000 ML 1,000 ML IV SCH ×2 (05:31→23:34)
[2020-08-27 05:51] LABS: CHOL/HDL RATIO 3.3 (0.0-5.0)
--- NOTE | 2020-08-27 09:29 | RAD ---
HISTORYSOBSTUDYCHEST, 1 [id number] lungs are not well inflated. As result, there are hypoventilatory changes.No significant abnormality when accounting for the lesser degree of inflation.The heart size is magnified. Vascular calcifications are present compatible with atherosclerosis.Bones are unremarkable.IMPRESSION1. No significant abnormalityElectronically signed by: Bay Hutson (Aug 27, 2020 09:26:56)
[2020-08-27] MEDS: NEURONTIN CAP 100 MG PO SCH ×2 (09:43→20:25)
[2020-08-27] MEDS: PROCARDIA XL 24-hr PO SCH (09:43)
[2020-08-27] MEDS: DEMADEX PO SCH (09:43)
[2020-08-27] MEDS: MILK OF MAGNESIA PO SCH (09:43)
[2020-08-27] MEDS: LINZESS PO SCH (09:44)
[2020-08-27] MEDS: COLACE SYRUP 100 MG UDC PO SCH (09:44)
[2020-08-27] MEDS: NORMODYNE TAB 100 MG PO SCH ×2 (09:44→20:26)
[2020-08-27] MEDS: ROCALTROL PO SCH (09:44)
[2020-08-27] MEDS: ASPIRIN EC 81 MG PO SCH (09:44)
[2020-08-27] MEDS: ZYLOPRIM PO SCH (09:45)
[2020-08-27] MEDS: NAMENDA TAB 10 MG PO SCH ×2 (09:45→20:25)
[2020-08-27] MEDS: LOVENOX INJ 30 MG SYR SC SCH (09:45)
[2020-08-27] MEDS: SYNTHROID 112 mcg TAB PO SCH (17:00)
[2020-08-27] MEDS: COLACE CAP 100 MG PO SCH (20:24)
[2020-08-27] MEDS: ARICEPT TAB 10 MG PO SCH (20:24)
[2020-08-27] MEDS: MIRAPEX TAB 0.25 MG PO SCH (20:25)
[2020-08-27] MEDS: LIPITOR TAB 20 MG PO SCH (20:25)
[2020-08-27] MEDS: ZETIA TAB 10 MG PO SCH (20:26)
[2020-08-27] MEDS: REMERON PO SCH (20:26)
[2020-08-28] MEDS: ATIVAN TAB 1 MG PO PRN ×2 (00:07→22:11)
[2020-08-28 06:34] LABS: BASOPHILS % (AUTO) 0.7 % (0.2-1.0); EOSINOPHILS # (AUTO) 0.2 x10^3/uL (0.0-0.2); HEMATOCRIT 38.3 % (36.0-47.0); HEMOGLOBIN 12.4 g/dL (12.0-16.0); LYMPHOCYTES # (AUTO) 2.6 X10^3/uL (1.3-2.9); LYMPHOCYTES % (AUTO) 39.8 % (21.0-51.0); MEAN CORPUSCULAR HEMOGLOBIN 29.2 pg (27.0-34.0); MEAN CORPUSCULAR HGB CONC 32.5 g/dL (33.0-35.0); MEAN CORPUSCULAR VOLUME 89.7 fL (80.0-100.0); MEAN PLATELET VOLUME 8.7 fL (7.4-11.0); MONOCYTES # (AUTO) 0.6 x10^3/uL (0.3-0.8); NEUTROPHILS # (AUTO) 3.1 x10^3/uL (2.2-4.8); NEUTROPHILS % (AUTO) 47.5 % (42.0-75.0); PLATELET COUNT 186 X10^3/uL (150.0-450.0); RED BLOOD COUNT 4.26 X10^6/uL (3.5-5.4); RED CELL DISTRIBUTION WIDTH 17.3 % (11.6-16.5); WHITE BLOOD COUNT 6.5 X10^3/uL (3.6-10.0)
[2020-08-28 06:44] LABS: ALANINE AMINOTRANSFERASE 19 Units/L (12-78); ALBUMIN 3.2 g/dL (3.4-5.0); ALKALINE PHOSPHATASE 102 Units/L (46-116); ASPARTATE AMINO TRANSFERASE 14 Units/L (15-37); BLOOD UREA NITROGEN 21 mg/dL (7-18); CHLORIDE 105 mmol/L (98-107); COR CA(FOR HYPOALB) 9.6 mg/dL (8.5-10.1); CREATININE 1.73 mg/dL (0.55-1.02); SODIUM 142 mmol/L (136-145); TOTAL PROTEIN 7.3 g/dL (6.4-8.2); eGFR NON BLACK RACES 30 (>60)
[2020-08-28] MEDS ORDERED: KLOR-CON PO PRN (09:16)
[2020-08-28] MEDS ORDERED: POTASSIUM CHL 40 MEQ/NS 0.45% 500 ML IV PRN (09:16)
[2020-08-28] MEDS ORDERED: POTASSIUM CHLORIDE LIQ 20 MEQ UDC PO PRN (09:16)
[2020-08-28] MEDS ORDERED: K-RIDER 10 MEQ/NS 100 ML 10 MEQ/100 ML BAG IV PRN (09:16)
[2020-08-28] MEDS ORDERED: MICRO K EXTEN CAP 10 MEQ PO PRN (09:16)
[2020-08-28] MEDS ORDERED: POTASSIUM CHL 60 MEQ/NS 0.45% 500 ML IV PRN (09:16)
[2020-08-28] MEDS: LOVENOX INJ 30 MG SYR SC SCH (09:20)
[2020-08-28] MEDS: MILK OF MAGNESIA PO SCH (09:21)
[2020-08-28] MEDS: COLACE SYRUP 100 MG UDC PO SCH (09:21)
[2020-08-28] MEDS: ASPIRIN EC 81 MG PO SCH (09:23)
[2020-08-28] MEDS: NAMENDA TAB 10 MG PO SCH ×2 (09:26→20:27)
[2020-08-28] MEDS: NEURONTIN CAP 100 MG PO SCH ×2 (09:27→20:25)
[2020-08-28] MEDS: ZYLOPRIM PO SCH (09:28)
[2020-08-28] MEDS: NORMODYNE TAB 100 MG PO SCH ×2 (09:28→20:29)
[2020-08-28] MEDS: DEMADEX PO SCH (09:29)
[2020-08-28] MEDS: LINZESS PO SCH (09:29)
[2020-08-28] MEDS: NS 1000 ML 1,000 ML IV SCH ×4 (09:30→22:46)
[2020-08-28] MEDS: PROCARDIA XL 24-hr PO SCH (09:30)
[2020-08-28] MEDS: ROCALTROL PO SCH (09:30)
[2020-08-28] MEDS: K-DUR TAB 20 MEQ PO PRN (10:18)
[2020-08-28] MEDS: MAGNESIUM SULFATE 1 GRAM/100 mL PREMIX 1 GM/100 ML BAG IV PRN ×2 (10:19→11:42)
--- NOTE | 2020-08-28 12:01 | PCM.PROG ---
Progress Note Progress Note for Day of Date of Exam: 08/28/20 Subjective Subjective: Patient seen at bedside, no overnight events. She was admitted after having a fall and syncope episode at home. She states she feels better. She worked with PT/OT yesterday. She has not ambulated much in the room. Labs: Hgb 12.4 K: 3.1 BUN/Cr: 21/1.73 (1.94) Trop (-) Iron 43 ECHo: EF 63%, Grade 1 DD, mild-mod pulmonary HTN Carotid U/S: no significant stenosis CXR (-) Plan: continue PT/OT as tolerated. Replace K as per protocol. Add iron supplement. Continue gentle hydration with NS at 50cc/hr. Monitor AM labs. Past Medical Family Social History Past Med/Fam/Surg Hx: No changes since H&P Allergies: Allergies No Known Drug Allergies Allergy (Verified 08/25/20 15:26) Review of Systems ROS: No change since H&P Vital Signs and I&O's Vital Signs: Temperature 98.8 F Pulse Rate [Left Brachial] 75 Pulse Rate [Right] 84 Pulse Rate 72 Respiratory Rate 18 Blood Pressure [Right Arm] 144/66 Blood Pressure [Left Arm] 122/55 Blood Pressure 172/96 O2 Sat by Pulse Oximetry 98 Intake and Output: Intake & Output 08/25/20 08/26/20 08/27/20 08/28/20 23:59 23:59 23:59 23:59 Intake Total 1459 / 1459 1881 / 1881 1823 / 1823 Balance 1459 / 1459 1881 / 1881 1823 / 1823 Physical Exam Oriented: Normal Eyes: Normal Ear: Normal Nose: Normal Throat: Normal Respiratory: Generalized and Diminished Cardiovascular: Normal Auscultation: Bowel Sounds: Normal Tenderness: Normal Skin: Decreased Turgur Musculoskeletal: Normal Psychiatric: Normal Mood Description: Calm Speech Pattern: Clear and Appropriate Laboratory and Diagnostics Result Diagrams: 08/28/20 05:54 08/28/20 05:54 Labs: Laboratory WBC 6.5 X10^3/uL (3.6-10.0) 08/28/20 05:54 RBC 4.26 X10^6/uL (3.5-5.4) 08/28/20 05:54 Hgb 12.4 g/dL (12.0-16.0) 08/28/20 05:54 Hct 38.3 % (36.0-47.0) 08/28/20 05:54 MCV 89.7 fL (80.0-100.0) 08/28/20 05:54 MCH 29.2 pg (27.0-34.0) 08/28/20 05:54 MCHC 32.5 g/dL (33.0-35.0) L 08/28/20 05:54 RDW 17.3 % (11.6-16.5) H 08/28/20 05:54 Plt Count 186 X10^3/uL (150.0-450.0) 08/28/20 05:54 MPV 8.7 fL (7.4-11.0) 08/28/20 05:54 Neut % (Auto) 47.5 % (42.0-75.0) 08/28/20 05:54 Lymph % (Auto) 39.8 % (21.0-51.0) 08/28/20 05:54 [place] % (Auto) 9.0 % (0.0-13.0) 08/28/20 05:54 Eos % (Auto) 3.0 % (0.9-2.9) H 08/28/20 05:54 Baso % (Auto) 0.7 % (0.2-1.0) 08/28/20 05:54 Neut # (Auto) 3.1 x10^3/uL (2.2-4.8) 08/28/20 05:54 Lymph # (Auto) 2.6 X10^3/uL (1.3-2.9) 08/28/20 05:54 [place] # (Auto) 0.6 x10^3/uL (0.3-0.8) 08/28/20 05:54 Eos # (Auto) 0.2 x10^3/uL (0.0-0.2) 08/28/20 05:54 Baso # (Auto) 0.0 X10^3/uL (0.0-0.1) 08/28/20 05:54 Absolute Nucleated RBC 0.0 /100WBC 08/28/20 05:54 Sodium 142 mmol/L (136-145) 08/28/20 05:54 Corrected Sodium TNP 08/28/20 05:54 Potassium 3.1 mmol/L (3.5-5.1) L 08/28/20 05:54 Chloride 105 mmol/L (98-107) 08/28/20 05:54 Carbon Dioxide 30.0 mmol/L (21-32) 08/28/20 05:54 BUN 21 mg/dL (7-18) H 08/28/20 05:54 Creatinine 1.73 mg/dL (0.55-1.02) H 08/28/20 05:54 Est GFR (MDRD) Af Amer 36 (>60) L 08/28/20 05:54 Est GFR (MDRD) Non-Af 30 (>60) L 08/28/20 05:54 Glucose 101 mg/dL (65-99) H 08/28/20 05:54 Calcium 9.0 mg/dL (8.5-10.1) 08/28/20 05:54 Corrected Calcium 9.6 mg/dL (8.5-10.1) 08/28/20 05:54 Magnesium 1.8 mg/dL (1.7-2.9) 08/28/20 05:54 Iron 43 ug/dL (50-175) L 08/26/20 13:00 Transferrin 202 mg/dL (202-364) 08/26/20 13:00 Ferritin 44 ng/mL (8-252) 08/26/20 13:00 Total Bilirubin 0.10 mg/dL (0.2-1.0) L 08/28/20 05:54 AST 14 Units/L (15-37) L 08/28/20 05:54 ALT 19 Units/L (12-78) 08/28/20 05:54 Alkaline Phosphatase 102 Units/L (46-116) 08/28/20 05:54 Creatine Kinase 122 Units/L (26-192) 08/26/20 13:27 CK-MB (CK-2) < 1.0 ng/mL (0-4.0) 08/26/20 13:27 CK/CKMB % Calc 0.8 % (<4) 08/26/20 13:27 Troponin I < 0.02 ng/mL (0-1.5) 08/26/20 13:27 C-Reactive Protein 13.80 mg/L (0-3.0) H 08/26/20 13:27 Total Protein 7.3 g/dL (6.4-8.2) 08/28/20 05:54 Albumin 3.2 g/dL (3.4-5.0) L 08/28/20 05:54 Globulin 4.1 g/dL (2.5-4.5) 08/28/20 05:54 Albumin/Globulin Ratio 0.8 Ratio (1.1-2.1) L 08/28/20 05:54 Triglycerides 155 mg/dL (0-150) H 08/27/20 03:50 Cholesterol 147 mg/dL (0-200) 08/27/20 03:50 LDL Cholesterol, Calc 72 mg/dL (0-100) 08/27/20 03:50 HDL Cholesterol 44 mg/dL (40-60) 08/27/20 03:50 Cholesterol/HDL Ratio 3.3 (0.0-5.0) 08/27/20 03:50 Vitamin B12 706 pg/mL (193-986) 08/26/20 13:00 Folate 9.1 ng/mL (>8.6) 08/26/20 13:00 Specimen Type Clean catch urine 08/25/20 18:15 Urine Color Yellow (YELLOW) 08/25/20 18:15 Urine Appearance Clear (CLEAR) 08/25/20 18:15 Urine pH 5.0 (5.0 - 8.0) 08/25/20 18:15 Ur Specific [place] 1.015 (1.000-1.030) 08/25/20 18:15 Urine Protein Negative (NEGATIVE) 08/25/20 18:15 Urine Glucose (UA) Negative (NEGATIVE) 08/25/20 18:15 Urine Ketones Negative (NEGATIVE) 08/25/20 18:15 Urine Occult Blood 1+ (NEGATIVE) 08/25/20 18:15 Urine Nitrite Negative (NEGATIVE) 08/25/20 18:15 Urine Bilirubin Negative (NEGATIVE) 08/25/20 18:15 Urine Urobilinogen Normal (NORMAL) 08/25/20 18:15 Ur Leukocyte Esterase 2+ (NEGATIVE) 08/25/20 18:15 Urine RBC 0-2 /HPF (0-3) 08/25/20 18:15 Urine WBC 3-5 /HPF (0-5) 08/25/20 18:15 Ur Squamous Epith Cells Rare /HPF (NEGATIVE) 08/25/20 18:15 Urine Bacteria Trace /HPF (NEGATIVE) 08/25/20 18:15 Ur Culture Indicated? No/not indicated 08/25/20 18:15 SARS CoV-2 RNA Rapid MICKEY Negative (NEGATIVE) 08/25/20 19:32 Plan (1) Near syncope: Status: Acute Plan: CT HEAD ON ADMISSION BP CONTROL, GENTLE IV HYDRATION, STRICT I& OS CAROTID ARTERY US, ECHO TELEMETRY, BP CONTROL, CONTINUE HOME ANTIHYPERTENSIVE MEDICATION PRN HYDRALAZINE SERIAL CE AND EKG. (2) Acute kidney injury: Status: Acute (3) Hypokalemia: Status: Acute (4) Diastolic heart failure: Status: Acute Qualifiers: Heart failure chronicity: unspecified Qualified Code(s): I50.30 - Unspecified diastolic (congestive) heart failure (5) Moderate pulmonary hypertension: Status: Acute (6) Hypertension: Status: Acute Qualifiers: Hypertension type: essential hypertension Qualified Code(s): I10 - Ess ential (primary) hypertension
[2020-08-28] MEDS: SYNTHROID 112 mcg TAB PO SCH (16:50)
[2020-08-28] MEDS: FERROUS GLUCONATE PO SCH (16:51)
[2020-08-28] MEDS: COLACE CAP 100 MG PO SCH (20:24)
[2020-08-28] MEDS: LIPITOR TAB 20 MG PO SCH (20:24)
[2020-08-28] MEDS: MIRAPEX TAB 0.25 MG PO SCH (20:25)
[2020-08-28] MEDS: ZETIA TAB 10 MG PO SCH (20:25)
[2020-08-28] MEDS: REMERON PO SCH (20:26)
[2020-08-28] MEDS: ARICEPT TAB 10 MG PO SCH (20:27)
[2020-08-28] MEDS: RESTORIL CAP 15 MG PO PRN (23:38)
[2020-08-29] MEDS: NS 1000 ML 1,000 ML IV SCH ×4 (05:55→23:45)
[2020-08-29 06:41] LABS: BASOPHILS # (AUTO) 0.1 X10^3/uL (0.0-0.1); BASOPHILS % (AUTO) 0.9 % (0.2-1.0); EOSINOPHILS # (AUTO) 0.2 x10^3/uL (0.0-0.2); EOSINOPHILS % (AUTO) 3.9 % (0.9-2.9); HEMOGLOBIN 12.4 g/dL (12.0-16.0); LYMPHOCYTES # (AUTO) 2.3 X10^3/uL (1.3-2.9); LYMPHOCYTES % (AUTO) 41.2 % (21.0-51.0); MEAN CORPUSCULAR HEMOGLOBIN 28.8 pg (27.0-34.0); MEAN CORPUSCULAR HGB CONC 31.7 g/dL (33.0-35.0); MEAN CORPUSCULAR VOLUME 90.7 fL (80.0-100.0); MEAN PLATELET VOLUME 8.7 fL (7.4-11.0); MONOCYTES # (AUTO) 0.6 x10^3/uL (0.3-0.8); MONOCYTES % (AUTO) 10.4 % (0.0-13.0); NEUTROPHILS # (AUTO) 2.4 x10^3/uL (2.2-4.8); NEUTROPHILS % (AUTO) 43.6 % (42.0-75.0); PLATELET COUNT 188 X10^3/uL (150.0-450.0); RED CELL DISTRIBUTION WIDTH 17.2 % (11.6-16.5); WHITE BLOOD COUNT 5.5 X10^3/uL (3.6-10.0)
[2020-08-29 06:53] LABS: BLOOD UREA NITROGEN 19 mg/dL (7-18); CALCIUM 9.1 mg/dL (8.5-10.1); CARBON DIOXIDE 29.4 mmol/L (21-32); CHLORIDE 106 mmol/L (98-107); CREATININE 1.55 mg/dL (0.55-1.02); SODIUM 141 mmol/L (136-145); eGFR NON BLACK RACES 34 (>60)
[2020-08-29] MEDS: LOVENOX INJ 30 MG SYR SC SCH (09:10)
[2020-08-29] MEDS: PROCARDIA XL 24-hr PO SCH (09:11)
[2020-08-29] MEDS: ROCALTROL PO SCH (09:12)
[2020-08-29] MEDS: DEMADEX PO SCH (09:13)
[2020-08-29] MEDS: LINZESS PO SCH (09:13)
[2020-08-29] MEDS: NEURONTIN CAP 100 MG PO SCH ×2 (09:13→20:04)
[2020-08-29] MEDS: ASPIRIN EC 81 MG PO SCH (09:14)
[2020-08-29] MEDS: NORMODYNE TAB 100 MG PO SCH ×2 (09:14→20:06)
[2020-08-29] MEDS: NAMENDA TAB 10 MG PO SCH ×2 (09:15→20:05)
[2020-08-29] MEDS: COLACE SYRUP 100 MG UDC PO SCH (09:15)
[2020-08-29] MEDS: MILK OF MAGNESIA PO SCH (09:15)
[2020-08-29] MEDS: FERROUS GLUCONATE PO SCH ×2 (09:19→17:58)
[2020-08-29] MEDS: ZYLOPRIM PO SCH (09:20)
--- NOTE | 2020-08-29 10:56 | PCM.PROG ---
Progress Note Progress Note for Day of Date of Exam: 08/29/20 Subjective Subjective: Patient seen at bedside, no overnight events. She was admitted after having a fall and syncope episode at home. She states she feels worse today, more tired and decreased energy. She did work with PT yesterday. She has been ambulating to the bathroom. Denies N/V/D or abdominal pain. Denies cough. She has been eating a little bit. Labs: Hgb 12.4 K: 3.5 BUN/Cr: 19/1.55 (1.73) Trop (-) Iron 43 Mg 2.0 ECHO: EF 63%, Grade 1 DD, mild-mod pulmonary HTN Carotid U/S: no significant stenosis CXR (-) Plan: continue PT/OT as tolerated. Advised patient to sit up in the recliner for a bit. Continue gentle hydration with NS at 50cc/hr. Replace electrolytes as needed. Monitor AM labs. Continue current treatment. Past Medical Family Social History Past Med/Fam/Surg Hx: No changes since H&P Allergies: Allergies No Known Drug Allergies Allergy (Verified 08/25/20 15:26) Review of Systems ROS: No change since H&P Vital Signs and I&O's Vital Signs: Temperature 98.3 F Pulse Rate [Left Brachial] 67 Pulse Rate [Right] 84 Pulse Rate 72 Respiratory Rate 18 Blood Pressure [Right Arm] 154/69 Blood Pressure [Left Arm] 175/75 Blood Pressure 172/96 O2 Sat by Pulse Oximetry 97 Intake and Output: Intake & Output 08/26/20 08/27/20 08/28/20 08/29/20 23:59 23:59 23:59 23:59 Intake Total 1459 / 1459 1881 / 1881 3483 / 3483 328 / 328 Balance 1459 / 1459 1881 / 1881 3483 / 3483 328 / 328 Physical Exam Oriented: Normal Eyes: Normal Ear: Normal Nose: Normal Throat: Normal Respiratory: Generalized and Diminished Cardiovascular: Normal Auscultation: Bowel Sounds: Normal Tenderness: Normal Skin: Decreased Turgur Musculoskeletal: Normal Psychiatric: Normal Mood Description: Calm Speech Pattern: Clear and Appropriate Laboratory and Diagnostics Result Diagrams: 08/29/20 05:59 08/29/20 05:59 Labs: Laboratory WBC 5.5 X10^3/uL (3.6-10.0) 08/29/20 05:59 RBC 4.30 X10^6/uL (3.5-5.4) 08/29/20 05:59 Hgb 12.4 g/dL (12.0-16.0) 08/29/20 05:59 Hct 39.0 % (36.0-47.0) 08/29/20 05:59 MCV 90.7 fL (80.0-100.0) 08/29/20 05:59 MCH 28.8 pg (27.0-34.0) 08/29/20 05:59 MCHC 31.7 g/dL (33.0-35.0) L 08/29/20 05:59 RDW 17.2 % (11.6-16.5) H 08/29/20 05:59 Plt Count 188 X10^3/uL (150.0-450.0) 08/29/20 05:59 MPV 8.7 fL (7.4-11.0) 08/29/20 05:59 Neut % (Auto) 43.6 % (42.0-75.0) 08/29/20 05:59 Lymph % (Auto) 41.2 % (21.0-51.0) 08/29/20 05:59 [place] % (Auto) 10.4 % (0.0-13.0) 08/29/20 05:59 Eos % (Auto) 3.9 % (0.9-2.9) H 08/29/20 05:59 Baso % (Auto) 0.9 % (0.2-1.0) 08/29/20 05:59 Neut # (Auto) 2.4 x10^3/uL (2.2-4.8) 08/29/20 05:59 Lymph # (Auto) 2.3 X10^3/uL (1.3-2.9) 08/29/20 05:59 [place] # (Auto) 0.6 x10^3/uL (0.3-0.8) 08/29/20 05:59 Eos # (Auto) 0.2 x10^3/uL (0.0-0.2) 08/29/20 05:59 Baso # (Auto) 0.1 X10^3/uL (0.0-0.1) 08/29/20 05:59 Absolute Nucleated RBC 0.0 /100WBC 08/29/20 05:59 Sodium 141 mmol/L (136-145) 08/29/20 05:59 Corrected Sodium TNP 08/29/20 05:59 Potassium 3.5 mmol/L (3.5-5.1) 08/29/20 05:59 Chloride 106 mmol/L (98-107) 08/29/20 05:59 Carbon Dioxide 29.4 mmol/L (21-32) 08/29/20 05:59 BUN 19 mg/dL (7-18) H 08/29/20 05:59 Creatinine 1.55 mg/dL (0.55-1.02) H 08/29/20 05:59 Est GFR (MDRD) Af Amer 41 (>60) L 08/29/20 05:59 Est GFR (MDRD) Non-Af 34 (>60) L 08/29/20 05:59 Glucose 107 mg/dL (65-99) H 08/29/20 05:59 Calcium 9.1 mg/dL (8.5-10.1) 08/29/20 05:59 Corrected Calcium 9.6 mg/dL (8.5-10.1) 08/28/20 05:54 Magnesium 2.0 mg/dL (1.7-2.9) 08/29/20 05:59 Iron 43 ug/dL (50-175) L 08/26/20 13:00 Transferrin 202 mg/dL (202-364) 08/26/20 13:00 Ferritin 44 ng/mL (8-252) 08/26/20 13:00 Total Bilirubin 0.10 mg/dL (0.2-1.0) L 08/28/20 05:54 AST 14 Units/L (15-37) L 08/28/20 05:54 ALT 19 Units/L (12-78) 08/28/20 05:54 Alkaline Phosphatase 102 Units/L (46-116) 08/28/20 05:54 Creatine Kinase 122 Units/L (26-192) 08/26/20 13:27 CK-MB (CK-2) < 1.0 ng/mL (0-4.0) 08/26/20 13:27 CK/CKMB % Calc 0.8 % (<4) 08/26/20 13:27 Troponin I < 0.02 ng/mL (0-1.5) 08/26/20 13:27 C-Reactive Protein 13.80 mg/L (0-3.0) H 08/26/20 13:27 Total Protein 7.3 g/dL (6.4-8.2) 08/28/20 05:54 Albumin 3.2 g/dL (3.4-5.0) L 08/28/20 05:54 Globulin 4.1 g/dL (2.5-4.5) 08/28/20 05:54 Albumin/Globulin Ratio 0.8 Ratio (1.1-2.1) L 08/28/20 05:54 Triglycerides 155 mg/dL (0-150) H 08/27/20 03:50 Cholesterol 147 mg/dL (0-200) 08/27/20 03:50 LDL Cholesterol, Calc 72 mg/dL (0-100) 08/27/20 03:50 HDL Cholesterol 44 mg/dL (40-60) 08/27/20 03:50 Cholesterol/HDL Ratio 3.3 (0.0-5.0) 08/27/20 03:50 Vitamin B12 706 pg/mL (193-986) 08/26/20 13:00 Folate 9.1 ng/mL (>8.6) 08/26/20 13:00 Specimen Type Clean catch urine 08/25/20 18:15 Urine Color Yellow (YELLOW) 08/25/20 18:15 Urine Appearance Clear (CLEAR) 08/25/20 18:15 Urine pH 5.0 (5.0 - 8.0) 08/25/20 18:15 Ur Specific [place] 1.015 (1.000-1.030) 08/25/20 18:15 Urine Protein Negative (NEGATIVE) 08/25/20 18:15 Urine Glucose (UA) Negative (NEGATIVE) 08/25/20 18:15 Urine Ketones Negative (NEGATIVE) 08/25/20 18:15 Urine Occult Blood 1+ (NEGATIVE) 08/25/20 18:15 Urine Nitrite Negative (NEGATIVE) 08/25/20 18:15 Urine Bilirubin Negative (NEGATIVE) 08/25/20 18:15 Urine Urobilinogen Normal (NORMAL) 08/25/20 18:15 Ur Leukocyte Esterase 2+ (NEGATIVE) 08/25/20 18:15 Urine RBC 0-2 /HPF (0-3) 08/25/20 18:15 Urine WBC 3-5 /HPF (0-5) 08/25/20 18:15 Ur Squamous Epith Cells Rare /HPF (NEGATIVE) 08/25/20 18:15 Urine Bacteria Trace /HPF (NEGATIVE) 08/25/20 18:15 Ur Culture Indicated? No/not indicated 08/25/20 18:15 SARS CoV-2 RNA Rapid MICKEY Negative (NEGATIVE) 08/25/20 19:32 Plan (1) Near syncope: Status: Acute (2) Acute kidney injury: Status: Acute (3) Hypokalemia: Status: Acute (4) Diastolic heart failure: Status: Acute Qualifiers: Heart failure chronicity: unspecified Qualified Code(s): I50.30 - Unspecified diastolic (congestive) heart failure (5) Moderate pulmonary hypertension: Status: Acute (6) Hypertension: Status: Acute Qualifiers: Hypertension type: essential hypertension Qualified Code(s): I10 - Essential (primary) hypertension
[2020-08-29] MEDS: K-DUR TAB 20 MEQ PO PRN (14:55)
[2020-08-29] MEDS: SYNTHROID 112 mcg TAB PO SCH (17:58)
[2020-08-29] MEDS: ZETIA TAB 10 MG PO SCH (20:03)
[2020-08-29] MEDS: MIRAPEX TAB 0.25 MG PO SCH (20:03)
[2020-08-29] MEDS: COLACE CAP 100 MG PO SCH (20:03)
[2020-08-29] MEDS: ARICEPT TAB 10 MG PO SCH (20:04)
[2020-08-29] MEDS: LIPITOR TAB 20 MG PO SCH (20:05)
[2020-08-29] MEDS: REMERON PO SCH (20:05)
[2020-08-29] MEDS: ATIVAN TAB 1 MG PO PRN (20:07)
[2020-08-29] MEDS: RESTORIL CAP 15 MG PO PRN (23:35)
[2020-08-30] MEDS: NS 1000 ML 1,000 ML IV SCH (05:55)
[2020-08-30 06:39] LABS: BASOPHILS # (AUTO) 0.1 X10^3/uL (0.0-0.1); BASOPHILS % (AUTO) 1.1 % (0.2-1.0); EOSINOPHILS # (AUTO) 0.2 x10^3/uL (0.0-0.2); EOSINOPHILS % (AUTO) 3.3 % (0.9-2.9); HEMATOCRIT 36.7 % (36.0-47.0); HEMOGLOBIN 11.9 g/dL (12.0-16.0); LYMPHOCYTES # (AUTO) 2.6 X10^3/uL (1.3-2.9); LYMPHOCYTES % (AUTO) 41.2 % (21.0-51.0); MEAN CORPUSCULAR HEMOGLOBIN 29.1 pg (27.0-34.0); MEAN CORPUSCULAR HGB CONC 32.5 g/dL (33.0-35.0); MEAN CORPUSCULAR VOLUME 89.6 fL (80.0-100.0); MEAN PLATELET VOLUME 8.7 fL (7.4-11.0); MONOCYTES # (AUTO) 0.6 x10^3/uL (0.3-0.8); NEUTROPHILS # (AUTO) 2.9 x10^3/uL (2.2-4.8); NEUTROPHILS % (AUTO) 45.4 % (42.0-75.0); PLATELET COUNT 191 X10^3/uL (150.0-450.0); RED BLOOD COUNT 4.09 X10^6/uL (3.5-5.4); RED CELL DISTRIBUTION WIDTH 17.5 % (11.6-16.5); WHITE BLOOD COUNT 6.3 X10^3/uL (3.6-10.0)
[2020-08-30 06:50] LABS: BLOOD UREA NITROGEN 17 mg/dL (7-18); CARBON DIOXIDE 28.5 mmol/L (21-32); CHLORIDE 105 mmol/L (98-107); CREATININE 1.37 mg/dL (0.55-1.02); SODIUM 141 mmol/L (136-145); eGFR NON BLACK RACES 39 (>60)
[2020-08-30] MEDS: FERROUS GLUCONATE PO SCH (09:39)
[2020-08-30] MEDS: K-DUR TAB 20 MEQ PO PRN (09:40)
[2020-08-30] MEDS: LOVENOX INJ 30 MG SYR SC SCH (09:41)
[2020-08-30] MEDS: LINZESS PO SCH (09:42)
[2020-08-30] MEDS: ASPIRIN EC 81 MG PO SCH (09:42)
[2020-08-30] MEDS: COLACE SYRUP 100 MG UDC PO SCH (09:43)
[2020-08-30] MEDS: NAMENDA TAB 10 MG PO SCH (09:43)
[2020-08-30] MEDS: MILK OF MAGNESIA PO SCH (09:43)
[2020-08-30] MEDS: NEURONTIN CAP 100 MG PO SCH (09:44)
[2020-08-30] MEDS: PROCARDIA XL 24-hr PO SCH (09:44)
[2020-08-30] MEDS: ROCALTROL PO SCH (09:45)
[2020-08-30] MEDS: DEMADEX PO SCH (09:46)
[2020-08-30] MEDS: NORMODYNE TAB 100 MG PO SCH (09:48)
[2020-08-30] MEDS: ZYLOPRIM PO SCH (09:49)
[2020-08-30 12:06] VITALS: BP 164/69
== END 2020-08-30 12:35 ==
LOC: ER 15:16 → MED/SURG 15:16
PROVIDERS: ADMIT Internal Medicine; ATTEND Internal Medicine